=== PATIENT | male | born 1950 | race Caucasian/White ===

== ENCOUNTER 2019-02-11 11:50 | Outpatient (REF) | payer BC, SELFPAY ==
[2019-02-11 21:18] LABS: Abs Immature Grans 0.01 k/cumm (0.0-0.09); Absolute Basophil Count 0.02 k/cumm (0.0-0.2); Absolute Eosinophil Count 0.36 k/cumm (0.0-0.7); Absolute Lymphocyte Count 1.38 k/cumm (1.2-3.4); Absolute Monocyte Count 0.56 k/cumm (0.11-0.7); Absolute Neutrophil Count 4.07 k/cumm (1.2-6.7); Basophils % 0.3; Eosinophils % 5.6; HCT 46.6 % (40.0-50.0); HGB 15.9 g/dL (13.5-17.5); Immature Grans % 0.2; Lymphocytes % 21.6; Mean Corp. HGB Concentration 34.1 g/dL (32.0-36.0); Mean Corpuscular Hemoglobin 30.8 pg (27.0-33.0); Mean Corpuscular Volume 90.1 fL (80-95); Mean Platelet Volume 10.2 fL (8.0-11.0); Monocytes % 8.8; Neutrophils % 63.5; Platelet Count 152 x1000/uL (130-400); RBC 5.17 m/cumm (4.50-6.00); RBC Distribution Width 13.3 % (11.8-14.1)
[2019-02-11 21:52] LABS: ALT 26 U/L (12-78); AST 21 U/L (15-37); Albumin 3.9 g/dL (3.4-5.0); Alkaline Phosphatase 89 U/L (46-116); Anion Gap 10.7 mmol/L (3-11); BUN 14 mg/dL (7-18); Bilirubin, Total 0.6 mg/dL (0.2-1.0); CO2 27.3 mmol/L (21.0-32.0); CREATININE 0.97 mg/dL (0.70-1.30); Calcium 8.9 mg/dL (8.5-10.1); Calculated LDL 136 mg/dL; Chloride 106 mmol/L (98-107); Cholesterol 195 mg/dL (50-200); Glucose 100 mg/dL (70-100); HDL Cholesterol 38 mg/dL (40-60); Potassium 4.2 mmol/L (3.5-5.1); Sodium 144 mmol/L (136-145); TSH (W/Ref FT4) 2.35 uIU/mL (0.358-3.74); Total Protein 6.8 g/dL (6.4-8.2); Triglyceride 109 mg/dL (30-150)
[2019-02-11 23:01] LABS: Hemoglobin A1C 5.7 % (4.5-6.2)
[2019-02-13 09:28] LABS: PSA, Diagnostic <0.1 ng/ml (0-4.5)
== END 2019-02-11 12:10 ==
LOC: NCHCN 11:50
PROVIDERS: PCP Nurse Practitioner Family; Visit Provider Family Medicine
DX: Z85.46 Personal history of malignant neoplasm of prostate (principal); R73.03 Prediabetes; Z13.220 Encounter for screening for lipoid disorders; H43.399 Other vitreous opacities, unspecified eye; H18.613 Keratoconus, stable, bilateral; Z13.29 Encounter for screening for other suspected endocrine disorder; Z00.00 Encounter for general adult medical examination without abnormal findings
CPT/HCPCS: 80053; 80061; 83721; 83036; 84153; 84443; 85025

== ENCOUNTER 2023-03-08 09:01 | Day surgery (SDC) | payer BC, SELFPAY ==
--- NOTE | 2023-03-08 09:05 | PGE_ITS ---
Date of Service Date of service: 03/08/23 Time of Service: 10:30 Assessment and Plan Assessment and plan (1) Ingram's esophagus: Status: Acute Assessment and plan: I saw the Austin in same-day surgery again today. We reviewed the procedure as well as the risks, benefits and complications of the procedure. After our conversation he had a good understanding of both and wished to proceed. Risks, benefits and complications have been reviewed. Complications include but are not limited to bleeding, pain, perforation, sore throat, aspiration, and adverse reaction to the medications. Questions were entertained and answered to their satisfaction and they wished to proceed. No guarantees were given or implied. Proceed with EGD Subjective Subjective Interval history since last seen: From the office note: Mr. Polanco is a very pleasant 72-year-old gentleman who I was asked to see the by [facility] for consideration of an upper endoscopy.? He had an upper endoscopy done in 2019 down at [facility] and was found to have a short segment of Ingram's without dysplasia.? At that time they also stated that he possibly had a small various less than 5 mm.? Stomach was normal as well as the duodenum.? I was asked to see the patient for another upper endoscopy to follow-up on his Ingram's and to see if he has developed any varices.? He had hep C which was treated in 2012.? He does have a diagnosis of cirrhosis.? He denies any reflux type symptoms.? He denies any melena or hematochezia.? He denies hematemesis.? He denies dysphagia.? He used to be on omeprazole for a long time but has stopped that now.? He is taking a supplement pre and post meals to help with his reflux.? He states that he really always was pretty asymptomatic from his reflux.? He did have a colonoscopy at [facility] and according to the patient he is not due for another colonoscopy until next year.? I will try to get those results. Austin was seen in the same-day surgery area prior to surgery. He is doing well and has not had any new symptoms. Exam Const General: comfortable and no acute distress [facility] Head: normocephalic and atraumatic Resp Effort & Inspection: normal respiratory effort Auscultation: clear to auscultation bilaterally Cardio Rate: regular rate Rhythm: regular rhythm Time Spent with Patient Time Spent with Patient: <25 minutes Time was spent: counseling the patient
[2023-03-08 09:06] VITALS: BP 135/87; PULSE 76; RESP 18; TEMP 36.6; O2SAT 98
[2023-03-08] MEDS: Lactated Ringers 1,000 ML 80 ML IV (09:35)
--- NOTE | 2023-03-08 09:43 | W.ANESPRE ---
General Info Date of Service Date Performed: 03/08/23 Height: 5 ft 9 in Weight: 73.8 kg Body Mass Index (BMI): 24.0 Surgical Procedure: Operation Date: 03/08/23 10:50 Proposed Procedure Side Surgeon p Gastroscopy Christine Smyth MD Meds Allergies and Home Medications Allergies Allergy/AdvReac Type Severity Reaction Status Date / Time No Known Allergies Allergy Verified 03/08/23 09:21 Home Medication Medication Instructions Recorded albuterol sulfate 90 mcg/actuation 2 puff inhalation DIRECTED PRN 02/03/23 aerosol inhaler (Proventil HFA) Wheezing citalopram 20 mg tablet 20 mg PO .EVERY OTHER DAY 02/03/23 fluticasone propionate 110 2 puff inhalation BID 02/03/23 mcg/actuation HFA aerosol inhaler hydroxyzine HCl 50 mg tablet 50 mg PO HS PRN 02/03/23 ibuprofen 800 mg tablet 800 mg PO Q8H PRN 02/03/23 Current Visit Medications: Current Medications Generic Name Dose Route Start Last Admin Trade Name Alfredo PRN Reason Stop Dose Admin Ringer's Solution 1,000 mls @ 80 mls/hr 03/08/23 06:00 03/08/23 09:35 IV 04/06/23 23:59 80 mls/hr INFUSION SARTHAK Administration IV Miscellaneous Supplies 1 each 03/08/23 06:00 Iv Access IV 04/06/23 23:59 DIRECTED SARTHAK Sodium Chloride 0 ml 03/08/23 06:00 Normal Saline Flush 10 Ml Syr IV 04/06/23 23:59 PRN PRN Sodium Chloride 0 ml 03/08/23 06:00 Normal Saline 10 Ml Vial IJ 04/06/23 23:59 DIRECTED PRN Sterile Water 0 ml 03/08/23 06:00 Water,Injection,Sterile 10 Ml Vial IJ 04/06/23 23:59 DIRECTED PRN PFSH Active Problems Active Problems: Problem Status Onset Code Hepatitis C B19.20 Cirrhosis K74.60 Hiatal hernia K44.9 Reflux esophagitis K21.00 Ingram's esophagus K22.70 Medical History Medical History Herniated nucleus pulposus of lumbosacral region Surgical History Surgical History History of esophagogastroduodenoscopy (EGD) [place] [facility] [place] Laurie Tobacco Smoking/Tobacco Use Status: Never Alcohol Alcohol Intake: never Substance Use Substance use: Never Substance use type: does not use Vital Signs and Lab Results Vital Signs Most Recent Vital Signs in EMR: Most Recent Vital Signs Temp Pulse Resp BP Pulse Ox 36.6 C 76 18 135/87 98 03/08/23 09:06 03/08/23 09:06 03/08/23 09:06 03/08/23 09:06 03/08/23 09:06 Lab Results Blood Type / Crossmatch: No Data to Display Complete Blood Count: No Data to Display Complete Metabolic Panel: No Data to Display Liver Function Panel: No Data to Display Coagulation Panel: No Data to Display Cardiac Panel: No Data to Display Arterial Blood Gas: No Data to Display Venous Blood Gas: No Data to Display Pancreas Panel: No Data to Display Thyroid Panel: No Data to Display Infectious Disease: No Data to Display Blood Cultures: No Data to Display Toxicology Panel: No Data to Display Anesthesia Assessment and Plan Anesthesia History Personal History: No History of Anesthesia Complications Family History: No Family History of Anesthesia Complications Exercise Tolerance Exercise Tolerance: Metabolic Equivalents>4 Pertinent Negatives Pertinent Negatives: No Symptoms of GERD, No Major Cardiovascular Symptoms or Complaints and No Major Pulmonary Symptoms or Complaints Cardiac & Pulmonary Exam Cardiac Exam: Normal S1/S2 Heart Sounds Pulmonary Exam: Clear Bilateral Breath Sounds Implantable Cardiac Device Does patient have a Pacemaker or an ICD?: No Airway Exam Known Difficult Airway: No Mallampati Class: 2 Mouth Opening: Normal (> 3cm) Thyromental Distance: Greater than 3 cm Neck Range of Motion: Full ROM Neck Circumference: Normal Teeth Condition: Normal Dentition ASA Classification ASA Score: ASA 2 Emergency Case?: No NPO Status NPO Status: NPO Clears >2 hours, Solids >8 hours Anesthesia Plan Resuscitation Status: Full Code Anesthesia Technique: General Anesthesia Airway Planned: Natural Airway Monitors Used: Standard Monitors
[2023-03-08 09:49] VITALS: BMI 24.0
--- NOTE | 2023-03-08 10:34 | W.PM.ENDDOP ---
Date of service: 03/08/23 Time of Service: 11:09 Endoscopy Report DATE OF PROCEDURE: 03/08/23 PRE-OP DIAGNOSIS: Hx of Ingram's POST-OP DIAGNOSIS: other (Esophagitis, Hiatal hernia, Ingram's and Gastritis) PROCEDURE: EGD with biopsies SURGEON: Christine Smyth ANESTHESIA TYPE: General:No Airway ESTIMATED BLOOD LOSS: 5 PATHOLOGY: other (Bx of stomach, esophagus) COMPLICATIONS: None DISPOSITION: same day FINDINGS: 5 cm Hiatal hernia Ulceration and inflammation at the GE junction GE junction was at 30 cm mild to moderate Gastritis PROCEDURE DESCRIPTION: After informed consent was obtained the patient was take to the procedure room and placed in a supine position. Monitors were applied and a time out was done. The patients name, date of , procedure type, allergies to medications and metal in their body was reviewed. A bite block was placed and the patient was sedated. Once sedated and comfortable the gastroscope was advanced through the oropharynx which was grossly normal into the esophagus. The proximal and mid-esophagus were normal. In the distal esophagus there was inflammation as well as ulceration and Ingram's noted. There was a Hiatal Hernia. The scope was advanced into the stomach and through the pylorus into the 3rd portion of the duodenum. The duodenum was noted to be normal. The scope was retracted back into the stomach. There was moderate inflamation noted. Biopsies were done to rule out H. pylori. There were no ulcers. The scope was retroflexed. The cardia and fundus were noted to have some mild inflamation. The scope was retracted back into the esophagus and biopsies were done of the GE junction for surveillance of his Ingram's. The Z line was irregular. The GE junction was at 30 cm. There were no varices noted. The scope was removed and the patient was woken up and taken back to [facility] in stable condition. Follow up: Start Omeprazole 40 mg daily, low acid diet and follow up in 10 days
--- NOTE | 2023-03-08 10:45 | STOM_PTH ---
PATIENT: Austin Polanco LOC: [facility] U#:[id number] AGE/SX: 72/M ROOM: RE03/08/[address]: Christine Smyth MD : 1950 BED: DIS: 03/08/2023 SPEC #: [id number] RECD: 03/08/23 12:58 STATUS: TYRESE REQ #: [id number] DANICA: 03/08/23 10:[address]: Christine Smyth DEPT: Surgical Specimen RECD BY: Gloria Wise ENTERED: 03/08/23 12:59 SP TYPE: STOMACH OTHR DR: Daksha Ash Tissues: 1 - STOMACH BIOPSY 2 - ESOPHAGUS BIOPSY Procedures: GROSS AND MICRO LEVEL 4 Comments: [id number]
[2023-03-08 10:54] VITALS: BP 112/72; PULSE 73; RESP 18; TEMP 36.3; O2SAT 94
--- NOTE | 2023-03-08 10:56 | W.PM.DSUDISC ---
Date of service: 03/08/23 Time of Service: 10:57 Discharge Plan Disposition Patient Disposition: Home Condition: Stable Discharge Details Reason For Visit: Hx of Barretts Attending Provider: Christine Smyth Primary Care Provider: Daksha Ash Home Meds and New Rx's Prescriptions: New omeprazole 40 mg capsule,delayed release(DR/EC) 40 mg PO DAILY Qty: 90 3RF Continued ibuprofen 800 mg Tablet 800 mg PO Q8H PRN citalopram 20 mg Tablet 20 mg PO .EVERY OTHER DAY albuterol sulfate [Proventil HFA] 90 mcg/actuation Hfa Aerosol Inhaler 2 puff INHALATION DIRECTED PRN (Reason: Wheezing) hydroxyzine HCl 50 mg Tablet 50 mg PO HS PRN fluticasone propionate 110 mcg/actuation Hfa Aerosol Inhaler 2 puff INHALATION BID Discharge Instructions Instructions: Hiatal Hernia (DC), Gastritis (DC), Diet for Stomach Ulcers and Gastritis (ED), Byrd Esophagus (DC) Additional Instructions: Findings: 1. severe inflammation at the junction of the stomach and esophagus with ulcers 2. byrd's 3. Hiatal hernia 4. gastritis Diet: Low acid diet Medication: Please start Omeprazole 40 mg daily Please call if you develop: fevers >101.5 Nausea or Vomiting Abdominal pain that is not transient Rectal bleeding that is more then a tbsp A hard abdomen and inability to pass gas DAY SURGERY UNIT POST ENDOSCOPY INSTRUCTIONS Instructions for everyone who is given Anesthesia: For your safety, please do the following for the next 24 Hours: a. Do not drive or operate dangerous equipment b. Do not drink alcohol beverages or use any recreational drugs for the first 24 hours or while taking pain medications. The medications in your body may have a reaction that can be dangerous. c. Do not make any important decisions or sign any important papers 1. Generally there are no restrictions on your activity after a day or so has gone by, but you may feel a bit fatigued for a few days. 2. After you arrive home you may have a light meal and return to a normal diet as you can tolerate it without feeling sick to your stomach. 3. After surgery, you may feel pain or discomfort. This should be only transient, but if it persists please contact your doctor. 4. If there are any questions regarding the findings of your procedure, please feel free to contact your doctor. 6. If you are unable to contact your doctor with a problem, contact the hospital at [phone]. 7. Continue all your regular medications unless directed otherwise. I understand the above instructions and have no questions. Signature of Patient or Responsible Adult Escort Date/Time Name of Responsible Adult Escort Signature of Nurse Date/Time Stand Alone Forms: Anesthesia Discharge Inst., Bennie Miller (DSU) Referrals: Christine Smyth MD [ [facility] STAFF PHYSICIAN] - Activity:: Activity as Tolerated Diet:: see above Discharge Orders Discharge Orders: Discharge Order (Routine); Ordered 03/08/23 Ordered By: Christine Smyth DS: Diagnosis Discharge Diagnosis (1) Byrd's esophagus: Status: Acute Asessment and Plan: Patient is seen and examined after their endoscopy. Patient has no sore throat. They have been able to tolerate liquids. They do not have any Nausea or Vomiting. They are not having any chest pain or shortness of breath. They have been able to pass gas and are not having any abdominal pain or distention. they have not vomited any blood. The vital signs have been stable-see nursing notes. We discussed findings on their endoscopy We reviewed the importance of lifestyle modifications- see diet recommendations We reviewed any new medications that the patient may be prescribed- see medicine reconciliation. Patient will either be sent a letter with the biopsy results or follow up in the office- see discharge instructions Patient was given explicit instructions for emergency follow up post endoscopy- see discharge instructions Patient verbalized understanding and was discharged in stable and satisfactory condition. See nursing notes.
--- NOTE | 2023-03-08 11:06 | W.ANESPOSTOP ---
Postoperative Evaluation Date, Time and Location Date Performed: 03/08/23 Time Performed: 11:06 Patient Location: Day Surgery Unit Vital Signs Most Recent Imported Vital Signs: Most Recent Vital Signs Temp Pulse Resp BP Pulse Ox 36.3 C L 73 18 112/72 94 03/08/23 10:54 03/08/23 10:54 03/08/23 10:54 03/08/23 10:54 03/08/23 10:54 Pain Score Most Recent Pain Score: Most Recent Pain Score Pain Level 0 03/08/23 09:06 Assessment Mental Status: Awake (Alert & Oriented to Patient Baseline) Airway and Respiratory Function: Patent airway with normal (patient baseline) respiratory exam Cardiovascular Function: Hemodynamically Stable Hydration Status: Adequately Hydrated Nausea & Vomiting: No Nausea or Vomiting Pain: Pt. Denies Any Pain Peripheral Nerve Block: Patient did not receive a nerve block
[2023-03-08 11:25] VITALS: BP 120/90; PULSE 60; RESP 18; TEMP 36.4; O2SAT 96
== END 2023-03-08 11:53 | disposition home or self-care (01) ==
PROVIDERS: PCP Nurse Practitioner Family; Visit Provider Surgery
PROC: 0DJ68ZZ Inspection of Stomach, Via Natural or Artificial Opening Endoscopic (ICD-10-PCS; CPT 43235; principal; 2023-03-08 10:45)
DX: K22.70 Barrett's esophagus without dysplasia (principal); K20.90 Esophagitis, unspecified without bleeding; K44.9 Diaphragmatic hernia without obstruction or gangrene; K29.70 Gastritis, unspecified, without bleeding
CPT/HCPCS: 43239; 88305

== ENCOUNTER 2023-04-17 17:50 | Outpatient (REF) | payer BC, SELFPAY ==
[2023-04-17 17:47] LABS: Calculated LDL 161 mg/dL (<100); Cholesterol 226 mg/dL (<200); HDL Cholesterol 44 mg/dL (40-60); Triglyceride 108 mg/dL (<150)
--- OUTSIDE RECORDS SUMMARY | 2023-04-17 17:54 | XMS_ITS | CCD ---
Author Name Unknown Address [address] [place] [address] [phone] Organization Unknown Address [address] [place] [address] [phone] Care Team Providers Care Surtass Analyst Name Role Phone MARGARET WILKERSON Attending Physician [phone] Vital Signs Unknown or Not Available. Allergies Allergy Code Allergy Type Reaction Status No Known Allergies 0 No known allergies Active Procedures Unknown or Not Available. History of Immunizations Unknown or Not Available. Problems Problem Code Start Date Resolved Date Status Pneumonia 240861169 Active Results PSA PROSTATE SPECIFIC ANTIGE N DIAG* - Collect Date/Time: 09/29/2021 14:42 Test Name Code Test Result Test Units Test Ref Rang e PSA 2857-1 <0.13 ng/mL L=0.00 H=4.50 Active Medications Medication Code Dose Units Frequency Route Modificatio n Start Date/Time Ibuprofen 200MG Oral Tablet 192007 3 TABLET NEEDED THREE TIMES A DAY BY MOUTH 06/19/2017 12:28 Prescription Detail TAKE 3 TABLET BY MOUTH NEEDED THREE T IMES A DAY for pain, discomfort or fever Cefpodoxime Profetil 200MG Oral Tablet 787304 1 TABLET TWICE A DAY BY MOUTH 06/19/2017 12:17 Prescription Detail TAKE 1 TABLET BY MOUTH TWICE A DAY X 6 D AYS (through 06/25/17). Next dose tonight around 8 PM predniSONE 10MG Oral Tablet 644367 4 TABLET DAILY BY MOUTH 06/19/2017 12:16 Prescription Detail TAKE 4 TABLET BY MOUTH DAILY x 2 days th en 2 tabs daily x 3 days then 1 tab daily x 4 days then stop #20 ProAir HFA 0.09MG/1Actuat ion Inhalation Suspension 588187 2 PUFF NEEDED FOUR TIMES A DAY INHALATION 06/19/2017 12:16 Prescription Detail 2 PUFF INHALATION NEEDED FOUR TIMES A DAY Azithromycin 250MG Oral Tablet 541578 250 MILLIGRAMS DAILY BY MOUTH 11/20/201 7 12:14 Prescription Detail TAKE 250 MILLIGRAMS BY MOUTH DAILY x 6 d ays (though 06/25/2017) Citalopram 20MG Oral Tablet 607654 20 MILLIGRAMS DAILY ORAL 7 12:11 Prescription Detail TAKE 20 MILLIGRAMS ORAL DAILY guaiFENesin DM 10MG-100MG/5ML Oral Syrup 519665 10 mL NEEDED EVERY 4 HOURS BY MOUTH 06/19/2017 12:11 Prescription Detail TAKE 10 mL BY MOUTH NEEDED EVERY 4 HO URS FOR COUGH Medications Administered During Visit Unknown or Not Available. Encounters Encounter Diagnosis Diagnosis Code Start Date Primary malignant neoplasm of prostate [id number] 09/29/2021 Social History Smoking Status Code Start Date End Date Never smoker [id number] Patient Decision Aids Unknown or Not Available. Discharge Instructions You were admitted to [facility] on 09/29/2021 14:33 with a principal diagnosis of Malignant neoplasm of prostate You had the following tests done:PSA PROSTATE SPECIFIC ANTIGEN DIAG* You were discharged from [facility] on 09/29/2021 14:33 Should you have any questions prior to discharge, please contact a member of your healthcare team. If you have left the hospital and have any questions, please contact your primary care physician. Chief Complaint and Reason For Visit Unknown or Not Available. Function Status Unknown or Not Available. Plan of Care Unknown or Not Available. Referral/Transition of Care Unknown or Not Available.
--- OUTSIDE RECORDS SUMMARY | 2023-04-17 17:54 | XMS_ITS | CCD ---
Author Name Unknown Address [address] [place] [address] [phone] Organization Unknown Address [address] [place] [address] [phone] Care Team Providers Care Supply Teacher Name Role Phone [facility] Natalie Attending Physician [phone] Vital Signs Unknown or Not Available. Allergies Allergy Code Allergy Type Reaction Status No Known Allergies 0 No known allergies Active Procedures Unknown or Not Available. History of Immunizations Unknown or Not Available. Problems Problem Code Start Date Resolved Date Status Pneumonia 932874208 Active Results COMPREHENSIVE METABOLIC PANE L (CMP) - Collect Date/Time: 09/06/2021 09:22 Test Name Code Test Result Test Units Test Ref Rang e GLUCOSE 2345-7 85 mg/dL L=70 H=116 BUN 3094-0 16 mg/dL L=6 H=25 CREATININE 2160-0 1.06 mg/dL L=0.67 H=1.17 SODIUM SERUM 2951-2 137 mmol/L L=136 H=145 POTASSIUM SERUM 2823-3 4.6 mmol/L L=3.4 H=5 .2 CHLORIDE SERUM 2075-0 103 mmol/L L=96 H=110 CARBON DIOXIDE (CO2) 2028-9 34 mmol/L L=22 H=34 ANION GAP 68227-6 0.2 mmol/L CALCIUM SERUM 46283-5 8.9 mg/dL L=8.2 H=10. 2 BILIRUBIN TOTAL 1975-2 0.8 mg/dL L=0.0 H=1 .3 ALK. PHOS. 6768-6 77 U/L L=46 H=116 SGOT (AST) 1920-8 30 U/L L=15 H=37 SGPT (ALT) 1742-6 28 U/L L=12 H=78 TOTAL PROTEIN 2885-2 7.1 gm/dL L=6.0 H=8.0 ALBUMIN 1751-7 3.9 gm/dL L=3.4 H=5.0 AGE 71 years eGFR (non-Afr.Amer.) 99133-7 69 mL/min eGFR (Afr-Spanish) 21042-5 84 mL/min HEMOGRAM + PLATELET WO DIFF - Collect Date/Time: 09/06/2021 09:22 Test Name Code Test Result Test Units Test Ref Rang e WBC 6690-2 4.94 th/cmm L=5.00 H=10.00 NRBC % 55922-4 0.0 % L=0.0 H=0.0 NRBC abs count 46500-8 0.0 mil/cmm L=0.0 H=0. 0 RBC 789-8 5.34 mil/cmm L=4.30 H=6.20 HEMOGLOBIN 718-7 16.3 gm/dL L=13.0 H=17.0 HEMATOCRIT 4544-3 49 % L=45 H=52 MCV 787-2 92 fL L=82 H=92 MCH 785-6 30.5 pg L=27.0 H=31.0 MCHC 786-4 33.1 % L=32.0 H=36.0 RDW-SD 788-0 41.1 fL L=39.0 H=49.0 PLATELET COUNT 777-3 164 th/cmm L=150 H=45 0 PT PROTHROMBIN TIME* - Colle ct Date/Time: 09/06/2021 09:22 Test Name Code Test Result Test Units Test Ref Rang e PROTIME 5902-2 10.8 seconds L=9.3 H=11.4 INR 79500-9 1.06 L=2.00 H=3.00 Active Medications Medication Code Dose Units Frequency Route Modificatio n Start Date/Time Ibuprofen 200MG Oral Tablet 069105 3 TABLET NEEDED THREE TIMES A DAY BY MOUTH 06/19/2017 12:28 Prescription Detail TAKE 3 TABLET BY MOUTH NEEDED THREE T IMES A DAY for pain, discomfort or fever Cefpodoxime Profetil 200MG Oral Tablet 080298 1 TABLET TWICE A DAY BY MOUTH 06/19/2017 12:17 Prescription Detail TAKE 1 TABLET BY MOUTH TWICE A DAY X 6 D AYS (through 06/25/17). Next dose tonight around 8 PM predniSONE 10MG Oral Tablet 010619 4 TABLET DAILY BY MOUTH 06/19/2017 12:16 Prescription Detail TAKE 4 TABLET BY MOUTH DAILY x 2 days th en 2 tabs daily x 3 days then 1 tab daily x 4 days then stop #20 ProAir HFA 0.09MG/1Actuat ion Inhalation Suspension 387674 2 PUFF NEEDED FOUR TIMES A DAY INHALATION 06/19/2017 12:16 Prescription Detail 2 PUFF INHALATION NEEDED FOUR TIMES A DAY Azithromycin 250MG Oral Tablet 366951 250 MILLIGRAMS DAILY BY MOUTH 7 12:14 Prescription Detail TAKE 250 MILLIGRAMS BY MOUTH DAILY x 6 d ays (though 06/25/2017) Citalopram 20MG Oral Tablet 444256 20 MILLIGRAMS DAILY ORAL 7 12:11 Prescription Detail TAKE 20 MILLIGRAMS ORAL DAILY guaiFENesin DM 10MG-100MG/5ML Oral Syrup 313518 10 mL NEEDED EVERY 4 HOURS BY MOUTH 06/19/2017 12:11 Prescription Detail TAKE 10 mL BY MOUTH NEEDED EVERY 4 HO URS FOR COUGH Medications Administered During Visit Unknown or Not Available. Encounters Encounter Diagnosis Diagnosis Code Start Date Unspecified cirrhosis of liver K7460 0 09/06/2021 Social History Smoking Status Code Start Date End Date Never smoker [id number] Patient Decision Aids Unknown or Not Available. Discharge Instructions You were admitted to [facility] on 09/06/2021 09:09 with a principal diagnosis of Unspecified cirrhosis of liver You had the following tests done:COMPREHENSIVE METABOLIC PANEL (CMP)HEMOGRAM + PLATELET WO DIFFPT PROTHROMBIN TIME* You were discharged from [facility] on 09/06/2021 09:09 Should you have any questions prior to discharge, please contact a member of your healthcare team. If you have left the hospital and have any questions, please contact your primary care physician. Chief Complaint and Reason For Visit Chief Complaint Date of Onset HEPATIC CIRRHOSIS Function Status Unknown or Not Available. Plan of Care Unknown or Not Available. Referral/Transition of Care Unknown or Not Available.
--- OUTSIDE RECORDS SUMMARY | 2023-04-17 17:54 | XMS_ITS | CCD ---
Author Name Unknown Address [address] [place] [address] [phone] Organization Unknown Address [address] [place] [address] [phone] Care Team Providers Care Electric Organ Assembler And Checker Name Role Phone UCHE SANTA Natalie Attending Physician [phone] Vital Signs Unknown or Not Available. Allergies Allergy Code Allergy Type Reaction Status No Known Allergies 0 No known allergies Active Procedures Unknown or Not Available. History of Immunizations Unknown or Not Available. Problems Problem Code Start Date Resolved Date Status Pneumonia [id number] Active Results COMPREHENSIVE METABOLIC PANE L (CMP) - Collect Date/Time: 12/19/2022 08:22 Test Name Code Test Result Test Units Test Ref Rang e GLUCOSE 2345-7 99 mg/dL L=70 H=116 BUN 3094-0 16 mg/dL L=6 H=25 CREATININE 2160-0 1.13 mg/dL L=0.67 H=1.17 SODIUM SERUM 2951-2 142 mmol/L L=136 H=145 POTASSIUM SERUM 2823-3 5.0 mmol/L L=3.4 H=5 .2 CHLORIDE SERUM 2075-0 105 mmol/L L=96 H=110 CARBON DIOXIDE (CO2) 2028-9 30 mmol/L L=22 H=34 ANION GAP 42521-2 7.1 mmol/L CALCIUM SERUM 16341-3 9.0 mg/dL L=8.2 H=10. 2 BILIRUBIN TOTAL 1975-2 0.8 mg/dL L=0.0 H=1 .3 ALK. PHOS. 6768-6 82 U/L L=46 H=116 SGOT (AST) 1920-8 26 U/L L=15 H=37 SGPT (ALT) 1742-6 32 U/L L=12 H=78 TOTAL PROTEIN 2885-2 6.6 gm/dL L=6.0 H=8.0 ALBUMIN 1751-7 3.7 gm/dL L=3.4 H=5.0 AGE 72 years eGFR (non-Afr.Amer.) 96581-8 64 mL/min eGFR (Afr-Qatari) 67421-9 78 mL/min CBC W/ DIFFERENTIAL* - Colle ct Date/Time: 12/19/2022 08:22 Test Name Code Test Result Test Units Test Ref Rang e WBC 6690-2 5.78 th/cmm L=5.00 H=10.00 NEUT % 62.6 % L=40.0 H=80.0 LYMPH % 25.3 % L=10.0 H=50.0 MONO % 11556-5 8.5 % L=2.0 H=12.0 EOS % 3.1 % L=0.0 H=8.0 BASO % 0.3 % L=0.0 H=3.0 IG % 2514-8 0.2 % L=0.0 H=1.1 NRBC % 88274-0 0.0 % L=0.0 H=0.0 NEUT abs count 751-8 3.6 th/cmm L=1.6 H=8. 4 LYMPH abs count 731-0 1.5 th/cmm L=1.5 H=4 .0 MONO abs count 742-7 0.5 th/cmm L=0.2 H=1. 0 EOS abs count 711-2 0.2 th/cmm L=0.0 H=0.5 BASO abs count 704-7 0.0 th/cmm L=0.0 H=0. 2 IG abs count 24845-7 0.0 th/cmm L=0.0 H=0.1 NRBC abs count 21600-4 0.0 mil/cmm L=0.0 H=0. 0 RBC 789-8 5.19 mil/cmm L=4.30 H=6.20 HEMOGLOBIN 718-7 15.7 gm/dL L=13.0 H=17.0 HEMATOCRIT 4544-3 48 % L=45 H=52 MCV 787-2 92 fL L=82 H=92 MCH 785-6 30.3 pg L=27.0 H=31.0 MCHC 786-4 33.1 % L=32.0 H=36.0 RDW-SD 788-0 40.8 fL L=39.0 H=49.0 PLATELET COUNT 777-3 160 th/cmm L=150 H=45 0 PT PROTHROMBIN TIME* - Colle ct Date/Time: 12/19/2022 08:22 Test Name Code Test Result Test Units Test Ref Rang e PROTIME 5902-2 10.7 seconds L=9.3 H=11.4 INR 78813-2 1.03 L=2.00 H=3.00 Active Medications Medication Code Dose Units Frequency Route Modificatio n Start Date/Time Ibuprofen 200MG Oral Tablet 370015 3 TABLET NEEDED THREE TIMES A DAY BY MOUTH 06/19/2017 12:28 Prescription Detail TAKE 3 TABLET BY MOUTH NEEDED THREE T IMES A DAY for pain, discomfort or fever Cefpodoxime Profetil 200MG Oral Tablet 901862 1 TABLET TWICE A DAY BY MOUTH 06/19/2017 12:17 Prescription Detail TAKE 1 TABLET BY MOUTH TWICE A DAY X 6 D AYS (through 06/25/17). Next dose tonight around 8 PM predniSONE 10MG Oral Tablet 771064 4 TABLET DAILY BY MOUTH 06/19/2017 12:16 Prescription Detail TAKE 4 TABLET BY MOUTH DAILY x 2 days th en 2 tabs daily x 3 days then 1 tab daily x 4 days then stop #20 ProAir HFA 0.09MG/1Actuat ion Inhalation Suspension 003407 2 PUFF NEEDED FOUR TIMES A DAY INHALATION 06/19/2017 12:16 Prescription Detail 2 PUFF INHALATION NEEDED FOUR TIMES A DAY Azithromycin 250MG Oral Tablet 345333 250 MILLIGRAMS DAILY BY MOUTH 7 12:14 Prescription Detail TAKE 250 MILLIGRAMS BY MOUTH DAILY x 6 d ays (though 06/25/2017) Citalopram 20MG Oral Tablet 170870 20 MILLIGRAMS DAILY ORAL 7 12:11 Prescription Detail TAKE 20 MILLIGRAMS ORAL DAILY guaiFENesin DM 10MG-100MG/5ML Oral Syrup 542611 10 mL NEEDED EVERY 4 HOURS BY MOUTH 06/19/2017 12:11 Prescription Detail TAKE 10 mL BY MOUTH NEEDED EVERY 4 HO URS FOR COUGH Medications Administered During Visit Unknown or Not Available. Encounters Encounter Diagnosis Diagnosis Code Start Date Disease of liver [id number] 12/19/2022 Social History Smoking Status Code Start Date End Date Never smoker [id number] Patient Decision Aids Unknown or Not Available. Discharge Instructions You were admitted to [facility] on 12/19/2022 08:18 with a principal diagnosis of Other specified diseases of liver You had the following tests done:CBC W/ DIFFERENTIAL*COMPREHENSIVE METABOLIC PANEL (CMP)PT PROTHROMBIN TIME* You were discharged from [facility] on 12/19/2022 08:18 Should you have any questions prior to [...]
--- OUTSIDE RECORDS SUMMARY | 2023-04-17 17:55 | XMS_ITS | CCD ---
Author Name Unknown Address [address] [place] [address] [phone] Organization Unknown Address [address] [place] [address] [phone] Care Team Providers Care Phytopathologist Name Role Phone MARGARET WILKERSON Attending Physician [phone] Vital Signs Unknown or Not Available. Allergies Allergy Code Allergy Type Reaction Status No Known Allergies 0 No known allergies Active Procedures Unknown or Not Available. History of Immunizations Unknown or Not Available. Problems Problem Code Start Date Resolved Date Status Pneumonia [id number] Active Results BASIC METABOLIC PANEL (BMP) - Collect Date/Time: 03/08/2021 10:30 Test Name Code Test Result Test Units Test Ref Rang e GLUCOSE 2345-7 93 mg/dL L=70 H=116 BUN 3094-0 15 mg/dL L=6 H=25 CREATININE 2160-0 0.97 mg/dL L=0.67 H=1.17 SODIUM SERUM 2951-2 141 mmol/L L=136 H=145 POTASSIUM SERUM 2823-3 4.6 mmol/L L=3.4 H=5 .2 CHLORIDE SERUM 2075-0 105 mmol/L L=96 H=110 CARBON DIOXIDE (CO2) 2028-9 28 mmol/L L=22 H=34 ANION GAP 56051-5 8.3 mmol/L CALCIUM SERUM 43778-5 8.9 mg/dL L=8.2 H=10. 2 AGE 70 years eGFR (non-Afr.Amer.) 39083-7 77 mL/min eGFR (Afr-Belgian) 95239-8 93 mL/min PSA PROSTATE SPECIFIC ANTIGE N DIAG - Collect Date/Time: 03/08/2021 10:30 Test Name Code Test Result Test Units Test Ref Rang e PSA 2857-1 <0.13 ng/mL L=0.00 H=4.50 URINALYSIS ROUTINE - Collect Date/Time: 03/08/2021 10:23 Test Name Code Test Result Test Units Test Ref Rang e COLLECTION MODE: CLEAN CATCH N/A Color 5778-6 STRAW N/A yellow Appearance 5767-9 CLEAR N/A clear Glucose urine 48588-7 NEGATIVE N/A negative mg /dl Bilirubin 5770-3 NEGATIVE N/A negative Ketones 2514-8 NEGATIVE N/A negative mg/dl Spec gravity 5811-5 <=1.005 N/A 1.003 - 1.03 0 pH urine 2756-5 6.5 N/A 5.0 - 7.0 Protein 78678-4 NEGATIVE N/A negative mg/dl Urobilinogen 37511-2 0.2 N/A <or= 1 EU/dl Nitrite 5802-4 NEGATIVE N/A negative Blood 5794-3 NEGATIVE N/A negative Leukocytes 97469-3 NEGATIVE N/A negative MICROSCOPIC* NOT INDICAT N/A Active Medications Medication Code Dose Units Frequency Route Modificatio n Start Date/Time Ibuprofen 200MG Oral Tablet 659840 3 TABLET NEEDED THREE TIMES A DAY BY MOUTH 06/19/2017 12:28 Prescription Detail TAKE 3 TABLET BY MOUTH NEEDED THREE T IMES A DAY for pain, discomfort or fever Cefpodoxime Profetil 200MG Oral Tablet 937085 1 TABLET TWICE A DAY BY MOUTH 06/19/2017 12:17 Prescription Detail TAKE 1 TABLET BY MOUTH TWICE A DAY X 6 D AYS (through 06/25/17). Next dose tonight around 8 PM predniSONE 10MG Oral Tablet 155332 4 TABLET DAILY BY MOUTH 06/19/2017 12:16 Prescription Detail TAKE 4 TABLET BY MOUTH DAILY x 2 days th en 2 tabs daily x 3 days then 1 tab daily x 4 days then stop #20 ProAir HFA 0.09MG/1Actuat ion Inhalation Suspension 271532 2 PUFF NEEDED FOUR TIMES A DAY INHALATION 06/19/2017 12:16 Prescription Detail 2 PUFF INHALATION NEEDED FOUR TIMES A DAY Azithromycin 250MG Oral Tablet 812938 250 MILLIGRAMS DAILY BY MOUTH 7 12:14 Prescription Detail TAKE 250 MILLIGRAMS BY MOUTH DAILY x 6 d ays (though 06/25/2017) Citalopram 20MG Oral Tablet 348053 20 MILLIGRAMS DAILY ORAL 7 12:11 Prescription Detail TAKE 20 MILLIGRAMS ORAL DAILY guaiFENesin DM 10MG-100MG/5ML Oral Syrup 965622 10 mL NEEDED EVERY 4 HOURS BY MOUTH 06/19/2017 12:11 Prescription Detail TAKE 10 mL BY MOUTH NEEDED EVERY 4 HO URS FOR COUGH Medications Administered During Visit Unknown or Not Available. Encounters Encounter Diagnosis Diagnosis Code Start Date Primary malignant neoplasm of prostate [id number] 03/08/2021 Social History Smoking Status Code Start Date End Date Never smoker [id number] Patient Decision Aids Unknown or Not Available. Discharge Instructions You were admitted to on 03/08/2021 10:11 with a principal diagnosis of Malignant neoplasm of prostate You had the following tests done:BASIC METABOLIC PANEL (BMP)PSA PROSTATE SPECIFIC ANTIGEN DIAGURINALYSIS ROUTINE You were discharged from on 03/08/2021 10:11 Should you have any questions prior to [...]
--- OUTSIDE RECORDS SUMMARY | 2023-04-17 17:55 | XMS_ITS | CCD ---
Author Name Unknown Address [address] [place] [address] [phone] Organization Unknown Address [address] [place] [address] [phone] Care Team Providers Care Home Health Clinical Supervisor Name Role Phone UCHE SANTA Natalie Attending Physician [phone] Vital Signs Unknown or Not Available. Allergies Allergy Code Allergy Type Reaction Status No Known Allergies 0 No known allergies Active Procedures Unknown or Not Available. History of Immunizations Unknown or Not Available. Problems Problem Code Start Date Resolved Date Status Pneumonia [id number] Active Results COMPREHENSIVE METABOLIC PANE L (CMP) - Collect Date/Time: 04/25/2022 09:26 Test Name Code Test Result Test Units Test Ref Rang e GLUCOSE 2345-7 90 mg/dL L=70 H=116 BUN 3094-0 15 mg/dL L=6 H=25 CREATININE 2160-0 1.02 mg/dL L=0.67 H=1.17 SODIUM SERUM 2951-2 133 mmol/L L=136 H=145 POTASSIUM SERUM 2823-3 4.2 mmol/L L=3.4 H=5 .2 CHLORIDE SERUM 2075-0 98 mmol/L L=96 H=110 CARBON DIOXIDE (CO2) 2028-9 33 mmol/L L=22 H=34 ANION GAP 42684-5 1.9 mmol/L CALCIUM SERUM 87467-8 8.7 mg/dL L=8.2 H=10. 2 BILIRUBIN TOTAL 1975-2 0.7 mg/dL L=0.0 H=1 .3 ALK. PHOS. 6768-6 83 U/L L=46 H=116 SGOT (AST) 1920-8 21 U/L L=15 H=37 SGPT (ALT) 1742-6 25 U/L L=12 H=78 TOTAL PROTEIN 2885-2 6.9 gm/dL L=6.0 H=8.0 ALBUMIN 1751-7 3.8 gm/dL L=3.4 H=5.0 AGE 71 years eGFR (non-Afr.Amer.) 31304-6 72 mL/min eGFR (Afr-[place]enezuelan) 39253-8 88 mL/min CBC W/ DIFFERENTIAL* - Colle ct Date/Time: 04/25/2022 09:26 Test Name Code Test Result Test Units Test Ref Rang e WBC 6690-2 6.65 th/cmm L=5.00 H=10.00 NEUT % 68.7 % L=40.0 H=80.0 LYMPH % 20.9 % L=10.0 H=50.0 MONO % 54601-3 7.8 % L=2.0 H=12.0 EOS % 1.8 % L=0.0 H=8.0 BASO % 0.6 % L=0.0 H=3.0 IG % 2514-8 0.2 % L=0.0 H=1.1 NRBC % 77885-8 0.0 % L=0.0 H=0.0 NEUT abs count 751-8 4.6 th/cmm L=1.6 H=8. 4 LYMPH abs count 731-0 1.4 th/cmm L=1.5 H=4 .0 MONO abs count 742-7 0.5 th/cmm L=0.2 H=1. 0 EOS abs count 711-2 0.1 th/cmm L=0.0 H=0.5 BASO abs count 704-7 0.0 th/cmm L=0.0 H=0. 2 IG abs count 82520-2 0.0 th/cmm L=0.0 H=0.1 NRBC abs count 45848-0 0.0 mil/cmm L=0.0 H=0. 0 RBC 789-8 5.06 mil/cmm L=4.30 H=6.20 HEMOGLOBIN 718-7 15.9 gm/dL L=13.0 H=17.0 HEMATOCRIT 4544-3 46 % L=45 H=52 MCV 787-2 91 fL L=82 H=92 MCH 785-6 31.4 pg L=27.0 H=31.0 MCHC 786-4 34.6 % L=32.0 H=36.0 RDW-SD 788-0 41.8 fL L=39.0 H=49.0 PLATELET COUNT 777-3 182 th/cmm L=150 H=45 0 PT PROTHROMBIN TIME* - Colle ct Date/Time: 04/25/2022 09:26 Test Name Code Test Result Test Units Test Ref Rang e PROTIME 5902-2 10.5 seconds L=9.3 H=11.4 INR 74810-9 1.05 L=2.00 H=3.00 Active Medications Medication Code Dose Units Frequency Route Modificatio n Start Date/Time Ibuprofen 200MG Oral Tablet 992477 3 TABLET NEEDED THREE TIMES A DAY BY MOUTH 06/19/2017 12:28 Prescription Detail TAKE 3 TABLET BY MOUTH NEEDED THREE T IMES A DAY for pain, discomfort or fever Cefpodoxime Profetil 200MG Oral Tablet 848784 1 TABLET TWICE A DAY BY MOUTH 06/19/2017 12:17 Prescription Detail TAKE 1 TABLET BY MOUTH TWICE A DAY X 6 D AYS (through 06/25/17). Next dose tonight around 8 PM predniSONE 10MG Oral Tablet 454934 4 TABLET DAILY BY MOUTH 06/19/2017 12:16 Prescription Detail TAKE 4 TABLET BY MOUTH DAILY x 2 days th en 2 tabs daily x 3 days then 1 tab daily x 4 days then stop #20 ProAir HFA 0.09MG/1Actuat ion Inhalation Suspension 330053 2 PUFF NEEDED FOUR TIMES A DAY INHALATION 06/19/2017 12:16 Prescription Detail 2 PUFF INHALATION NEEDED FOUR TIMES A DAY Azithromycin 250MG Oral Tablet 575048 250 MILLIGRAMS DAILY BY MOUTH 7 12:14 Prescription Detail TAKE 250 MILLIGRAMS BY MOUTH DAILY x 6 d ays (though 06/25/2017) Citalopram 20MG Oral Tablet 441153 20 MILLIGRAMS DAILY ORAL 7 12:11 Prescription Detail TAKE 20 MILLIGRAMS ORAL DAILY guaiFENesin DM 10MG-100MG/5ML Oral Syrup 132641 10 mL NEEDED EVERY 4 HOURS BY MOUTH 06/19/2017 12:11 Prescription Detail TAKE 10 mL BY MOUTH NEEDED EVERY 4 HO URS FOR COUGH Medications Administered During Visit Unknown or Not Available. Encounters Encounter Diagnosis Diagnosis Code Start Date Unspecified cirrhosis of liver [id number] 04/25/2022 Social History Smoking Status Code Start Date End Date Never smoker [id number] Patient Decision Aids Unknown or Not Available. Discharge Instructions You were admitted to [facility] on 04/25/2022 08:48 with a principal diagnosis of Unspecified cirrhosis of liver You had the following tests done:CBC W/ DIFFERENTIAL*COMPREHENSIVE METABOLIC PANEL (CMP)PT PROTHROMBIN TIME* You were discharged from [facility] on 04/25/2022 08:48 Should you have any questions prior to [...]
== END 2023-04-17 17:51 | disposition home or self-care (01) ==
LOC: NCHCN 17:50
PROVIDERS: PCP Nurse Practitioner Family; Visit Provider Family Medicine
DX: E78.5 Hyperlipidemia, unspecified (principal)
CPT/HCPCS: 80061

== ENCOUNTER 2024-05-17 15:59 | Outpatient (REF) | payer BC, SELFPAY ==
[2024-05-17 21:42] LABS: Calculated LDL 152 mg/dL (<100); Cholesterol 227 mg/dL (<200); HDL Cholesterol 54 mg/dL (40-60); Triglyceride 107 mg/dL (<150)
[2024-05-20 10:53] LABS: PSA, Diagnostic <0.1 ng/mL (<=6.5)
== END 2024-05-17 16:00 | disposition home or self-care (01) ==
LOC: NCHCN 15:59
PROVIDERS: PCP Nurse Practitioner Family; Visit Provider Family Medicine
DX: Z13.220 Encounter for screening for lipoid disorders (principal); Z85.46 Personal history of malignant neoplasm of prostate
CPT/HCPCS: 80061; 84153

== ENCOUNTER 2025-03-12 14:37 | Outpatient (REF) | payer MEDICARE, SELFPAY ==
[2025-03-13 10:36] LABS: HSV 1 DNA Result Negative (Negative); HSV 2 DNA Result Negative (Negative); Varicella Zoster DNA Result Negative (Negative)
== END 2025-03-12 14:38 | disposition home or self-care (01) ==
LOC: NCHCN 14:37
PROVIDERS: PCP Nurse Practitioner Family; Visit Provider Internal Medicine
DX: B00.9 Herpesviral infection, unspecified (principal)
CPT/HCPCS: 87529; 87798